=== PATIENT | male | born 1975 | race Two or more races ===

== ENCOUNTER 2018-07-22 08:43 | Emergency (ER) | payer BC, MEDICAID ==
[2018-07-22] MEDS: HYDROCODONE/APAP (10/325) TAB PO (09:27)
[2018-07-22] MEDS: BACLOFEN 10 MG TAB PO (09:33)
== END 2018-07-22 09:54 | disposition home or self-care (01) ==
LOC: FTE 08:43
DX: M54.5 Low back pain (principal); G89.29 Other chronic pain; F17.210 Nicotine dependence, cigarettes, uncomplicated
CPT/HCPCS: 99283

== ENCOUNTER 2018-08-15 16:49 | Emergency (ER) | payer BC | END 2018-08-15 18:44 | disposition home or self-care (01) | LOC: FTE 16:49 | DX: M54.9 Dorsalgia, unspecified (principal); G89.29 Other chronic pain; Z76.0 Encounter for issue of repeat prescription | CPT/HCPCS: 99283 ==